=== PATIENT | male | born 1965 | race Caucasian/White ===

== ENCOUNTER 2017-05-10 17:04 | Emergency (ER) | payer MEDICAID, OTHER ==
[~2017-05-10] VITALS: Ht 170.2 cm; Wt 104.3 kg
[~2017-05-10 17:04] MED LIST: COZ50 PO; METF1000 PO
[2017-05-10 17:54] VITALS: BP 124/79
[2017-05-10 18:43] LABS: BASOPHILS # (AUTO) 0.4 K/uL (0.00-0.22); EOSINOPHILS # (AUTO) 0.4 K/uL (0-0.4); HEMATOCRIT 46.9 % (36-52); HEMOGLOBIN 15.4 g/dL (12.0-18.0); MEAN CORPUSCULAR HEMOGLOBIN 29 pg (27-31); MEAN CORPUSCULAR HGB CONC 33 g/dL (33-37); MEAN CORPUSCULAR VOLUME 89 fL (80-94); MONOCYTES # (AUTO) 1.3 K/uL (0.8-1.0); NEUTROPHILS # (AUTO) 8.4 K/uL (1.8-7.7); PLATELET COUNT (AUTO) 322 K/uL (140-450); RED BLOOD CELL COUNT(AUTO) 5.27 MIL/uL (4.20-6.10); RED CELL DISTRIBUTION WIDTH 13.4 % (11.6-13.7); WHITE BLOOD COUNT (AUTO) 12.5 K/uL (4.8-10.8)
[2017-05-10 19:01] LABS: ANION GAP 11.7 (8-16); CARBON DIOXIDE 27.2 mmol/L (21-32); POTASSIUM 3.9 mmol/L (3.5-5.1); TOTAL BILIRUBIN 0.3 mg/dL (0.0-1.0)
--- NOTE | 2017-05-10 19:40 | NUR ---
PT TAKEN TO OF
--- NOTE | 2017-05-10 19:42 | NUR ---
51M BIB FAMILY C/O POSTERIOR HEADACHE, PRESSURE, NON-RADIATING, 7/10 X 1 WEEK; PT STATES NO TRAUMA OR INJURY TO SITE AT THIS TIME; PT AA&OX4, PERRLA, STATES NO BLURRY VISION OR VISION LOSS AT THIS TIME; BL LUNG SOUNDS CLEAR, RR EVEN/UNLABORED, SKIN IS WARM/DRY/INTACT AT THIS TIME; NO N/V/D AT THIS TIME; HX: HTN, AND DM.PT RESTING IN OVERFLOW, POSITIONED FOR COMFORT; ER MD MADE AWARE OF STATUS. WILL CONTINUE TO MONITOR.
--- NOTE | 2017-05-10 19:45 | NUR ---
Dr. Velásquez evaluating patient
[2017-05-10] MEDS ORDERED: KETOROLAC 60 MG/2 ML VIAL IM ONE (19:55)
[2017-05-10] MEDS ORDERED: predniSONE 20 MG TAB PO ONE (19:55)
[2017-05-10] MEDS ORDERED: diphenhydrAMINE 50 MG/ML VIAL IM ONE (19:55)
--- NOTE | 2017-05-10 20:58 | NUR ---
Patient discharged with v/s stable. Written and verbal after care instructions given and explained. Patient alert, oriented and verbalized understanding of instructions. Ambulatory with steady gait. All questions addressed prior to discharge. ID band removed. Patient advised to follow up with PMD. Rx of NAPROXEN 500MG TAB & FLEXERIL 5MG TAB given. Patient educated on indication of medication including possible reaction and side effects. Opportunity to ask questions provided and answered.
[2017-05-10 21:00] VITALS: BP 126/78
== END 2017-05-10 20:58 | disposition home or self-care (01) ==
LOC: MED 17:04
DX: G43.909 Migraine, unspecified, not intractable, without status migrainosus (principal); I10 Essential (primary) hypertension; E11.9 Type 2 diabetes mellitus without complications; Z79.899 Other long term (current) drug therapy
CPT/HCPCS: 36415; 70450; 80053; 85025; 96372; 99285; J1200; J1885; J7512

== ENCOUNTER 2022-02-19 14:37 | Emergency (ER) | payer OTHER ==
[~2022-02-19] VITALS: Ht 170.2 cm; Wt 74.8 kg
[~2022-02-19 14:37] MED LIST changes: -COZ50 PO; +LOSA50TA57 PO; +METF-1274 PO; -METF1000 PO
[2022-02-19 14:48] VITALS: BP 101/69
--- NOTE | 2022-02-19 14:55 | NUR ---
BIB DAUGHTER C/O GENERALIZED WEAKNESS, N/V X TODAY. BLOOD SUGAR 283 AT THIS TIME. PMH: DM. SKIN IS PINK/WARM/DRY; AAOX4 WITH EVEN AND STEADY GAIT; LUNGS CLEAR BL; HR EVEN AND REGULAR; PT DENIES ANY FEVER, CP, SOB, OR COUGH AT THIS TIME; PATIENT STATES PAIN OF 0/10 AT THIS TIME. PATIENT POSITIONED FOR COMFORT; HOB ELEVATED; BEDRAILS UP X1; BED DOWN. ER MD MADE AWARE OF PT STATUS.
[2022-02-19] MEDS ORDERED: MECLIZINE 25 MG TAB PO ONE (15:20)
[2022-02-19] MEDS ORDERED: ONDANSETRON 4 MG ODT PO ONE (15:20)
--- NOTE | 2022-02-19 15:30 | NUR ---
PT W/C ASSISTED TO BED 9.
[2022-02-19 16:18] LABS: BASOPHILS % (AUTO) 0.3 % (0.0-2.0); EOSINOPHILS # (AUTO) 0.1 K/uL (0-0.4); EOSINOPHILS % (AUTO) 0.5 % (0.0-4.0); HEMATOCRIT 43.2 % (36-52); HEMOGLOBIN 14.5 g/dL (12.0-18.0); LYMPHOCYTES # (AUTO) 1.3 K/uL (2.0-11.5); LYMPHOCYTES % (AUTO) 10.8 % (20.5-51.1); MEAN CORPUSCULAR HEMOGLOBIN 30 pg (27-31); MEAN CORPUSCULAR HGB CONC 34 g/dL (33-37); MEAN CORPUSCULAR VOLUME 88.6 fL (80-94); MONOCYTES # (AUTO) 0.6 K/uL (0.8-1.0); MONOCYTES % (AUTO) 4.6 % (1.7-9.3); NEUTROPHILS % (AUTO) 83.8 % (42.2-75.2); PLATELET COUNT (AUTO) 300 K/uL (140-450); RED BLOOD CELL COUNT(AUTO) 4.87 MIL/uL (4.20-6.10); RED CELL DISTRIBUTION WIDTH 13.5 % (11.6-13.7); WHITE BLOOD COUNT (AUTO) 11.9 K/uL (4.8-10.8)
[2022-02-19 16:58] LABS: ALBUMIN 3.4 g/dL (3.4-5.0); ANION GAP 11.4 (8-16); ASPARTATE AMINOTRANSFERASE 14 U/L (15-37); CARBON DIOXIDE 27.8 mmol/L (21-32); CHLORIDE 101 mmol/L (98-107); CREATININE 0.8 mg/dL (0.6-1.3); GFR ARICAN-AMERICAN 128 mL/min (>90); GLUCOSE 297 mg/dL (74-106); POTASSIUM 4.2 mmol/L (3.5-5.1); SODIUM SERUM 136 mmol/L (136-145); TOTAL BILIRUBIN 0.6 mg/dL (0.0-1.0); UREA NITROGEN, BLOOD 13 mg/dL (7-18)
[2022-02-19] MEDS ORDERED: MECL-303 PO (18:07)
[2022-02-19 18:37] VITALS: BP 106/68
--- NOTE | 2022-02-19 18:37 | NUR ---
Patient discharged with v/s stable. Written and verbal after care instructions given and explained. Patient alert, oriented and verbalized understanding of instructions. Ambulatory with steady gait. All questions addressed prior to discharge. ID band removed. Patient advised to follow up with PMD. Rx of ANTIVERT given. Patient educated on indication of medication including possible reaction and side effects. Opportunity to ask questions provided and answered.
== END 2022-02-19 18:37 | disposition home or self-care (01) ==
LOC: MED 14:37
DX: E11.9 Type 2 diabetes mellitus without complications (principal); I10 Essential (primary) hypertension; H81.399 Other peripheral vertigo, unspecified ear; Z79.899 Other long term (current) drug therapy
CPT/HCPCS: 36415; 70450; 80053; 84484; 85025; 93005; 99285; J8597; Q0162

== ENCOUNTER 2024-03-28 13:51 | Emergency (ER) | payer OTHER ==
[~2024-03-28] VITALS: Ht 165.1 cm; Wt 65.8 kg
[~2024-03-28 13:51] MED LIST changes: +MECL-303 PO
[2024-03-28 13:55] VITALS: BP 118/74; PULSE 102; RESP 18; TEMP 98.7; O2SAT 98
[2024-03-28] MEDS: KETOROLAC 30 MG/ML VIAL IVP ONE (14:44)
[2024-03-28] MEDS: ONDANSETRON 4 MG/2 ML VIAL IVP ONE (14:44)
[2024-03-28] MEDS: NACL 0.9% 1,000 ML IV ONE (14:45)
[2024-03-28 15:23] LABS: BASOPHILS % (AUTO) 0.6 % (0.0-2.0); EOSINOPHILS # (AUTO) 0.1 K/uL (0-0.4); EOSINOPHILS % (AUTO) 0.9 % (0.0-4.0); HEMATOCRIT 43.5 % (36-52); HEMOGLOBIN 14.6 g/dL (12.0-18.0); LYMPHOCYTES % (AUTO) 24.1 % (20.5-51.1); MEAN CORPUSCULAR HEMOGLOBIN 30 pg (27-31); MEAN CORPUSCULAR HGB CONC 34 g/dL (33-37); MEAN CORPUSCULAR VOLUME 89.6 fL (80-94); MONOCYTES # (AUTO) 0.7 K/uL (0.8-1.0); MONOCYTES % (AUTO) 9.2 % (1.7-9.3); NEUTROPHILS # (AUTO) 5.3 K/uL (1.8-7.7); NEUTROPHILS % (AUTO) 65.2 % (42.2-75.2); PLATELET COUNT (AUTO) 337 K/uL (140-450); RED BLOOD CELL COUNT(AUTO) 4.86 MIL/uL (4.20-6.10); RED CELL DISTRIBUTION WIDTH 13.8 % (11.6-13.7); WHITE BLOOD COUNT (AUTO) 8.2 K/uL (4.8-10.8)
[2024-03-28 15:41] LABS: INR 1.02 (0.8-1.2); PARTIAL THROMBOPLASTIN TIME 24.8 secs (22-35.6); PROTHROMBIN TIME 10.7 secs (10.8-13.4)
[2024-03-28 15:45] LABS: BILIRUBIN,DIRECT 0.2 mg/dL (0.0-0.3); TOTAL BILIRUBIN 0.7 mg/dL (0.0-1.0); TOTAL PROTEIN, SERUM 7.2 g/dL (6.4-8.2)
[2024-03-28 15:48] LABS: ANION GAP 9.8 (8-16); CALCIUM 8.7 mg/dL (8.5-10.1); CARBON DIOXIDE 29.5 mmol/L (21-32); CREATININE 0.7 mg/dL (0.6-1.3); POTASSIUM 4.3 mmol/L (3.5-5.1)
[2024-03-28 16:06] LABS: ALANINE AMINOTRANSFERASE 78 U/L (12-78); ALBUMIN 3.3 g/dL (3.4-5.0); ALKALINE PHOSPHATASE 112 U/L (50-136); ASPARTATE AMINOTRANSFERASE 31 U/L (15-37)
[2024-03-28] MEDS ORDERED: NACL 0.9% 1,000 ML IV ONE (17:25)
[2024-03-28 17:29] LABS: FLU B ANTIGEN NEGATIVE (NEGATIVE)
[2024-03-28 17:31] LABS: FLU A ANTIGEN POSITIVE (NEGATIVE)
[2024-03-28] MEDS ORDERED: ONDA-188 SL (17:35)
[2024-03-28] MEDS ORDERED: AZIT250T4 PO (17:35)
[2024-03-28 18:31] VITALS: BP 121/81; PULSE 94; RESP 16; TEMP 97; O2SAT 98
== END 2024-03-28 18:30 | disposition home or self-care (01) ==
LOC: MED 13:51
DX: J10.1 Influenza due to other identified influenza virus with other respiratory manifestations (principal); R07.89 Other chest pain; R53.1 Weakness; Z20.822 Contact with and (suspected) exposure to COVID-19; E11.9 Type 2 diabetes mellitus without complications; I10 Essential (primary) hypertension; Z79.899 Other long term (current) drug therapy
CPT/HCPCS: 36415; 71045; 80048; 80076; 82948; 83880; 84484; 85025; 85610; 85730; 87426; 87804; 93005; 96361; 96374; 96375; 99285; J1885; J2405; J7030